=== PATIENT | male | born 1950 | race Caucasian/White ===

== ENCOUNTER 2016-11-23 10:13 | Inpatient (IN) | payer OTHER, MEDICARE, BC ==
[~2016-11-23] VITALS: Ht 162.6 cm; Wt 89.0 kg
[2016-11-23] VITALS (11 sets, daily range): BP systolic 132–193; BP diastolic 75–97; PULSE 70–91; RESP 16–18; TEMP 97.7–99.1; O2SAT 96–100
[2016-11-23] MEDS ORDERED: SODIUM CHLOR 0.9% 1000 ML INJ 1,000 ML IV SCH (10:20)
[2016-11-23] MEDS ORDERED: cholesterol med (10:27)
[2016-11-23] MEDS ORDERED: SODIUM CHLORIDE 0.9% FLUSH 10 ML FLUSH IVF PRN (10:30)
[2016-11-23] MEDS ORDERED: DIPHTH/TETANUS/ACEL PERTUSSIS (BOOSTER) 0.5 ML VIAL/PFS IM ONE (10:30)
[2016-11-23 10:40] LABS: AUTOMATED NEUTROPHIL # 6.9 TH/MM3 (1.8-7.7); BASOPHIL % 0.4 % (0.0-2.0); EOSINOPHIL # 0.1 TH/MM3 (0-0.4); EOSINOPHIL % 0.7 % (0.0-4.0); HEMATOCRIT 42.9 % (39.0-51.0); HEMO FLAGS DIFF FINAL; LYMPH % 22.2 % (9.0-44.0); LYMPHOCYTE # 2.2 TH/MM3 (1.0-4.8); MEAN CELL VOLUME 84.8 FL (80.0-100.0); MEAN CORPUSCULAR HEMOGLOBIN 29.5 PG (27.0-34.0); MEAN CORPUSCULAR HGB CONC 34.8 % (32.0-36.0); MONO % 7.1 % (0.0-8.0); NEUT % 69.6 % (16.0-70.0); PLATELET COUNT 187 TH/MM3 (150-450); RED BLOOD COUNT 5.06 MIL/MM3 (4.50-5.90); RED CELL DISTRIBUTION WIDTH 13.6 % (11.6-17.2)
[2016-11-23 10:44] LABS: I-STAT POTASSIUM 4.2 MMOL/L (3.5-4.9); I-STAT SODIUM 140 MMOL/L (138-146)
[2016-11-23 10:49] LABS: APTT (PATIENT) 23.9 SEC (24.3-30.1); INTERNATIONAL NORMALIZED RATIO 0.9 RATIO; PROTHROMBIN TIME - PATIENT 10.4 SEC (9.8-11.6)
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
[2016-11-23 10:51] LABS: ANION GAP 5 MEQ/L (5-15); BICARBONATE 28.1 MEQ/L (21.0-32.0); BLOOD UREA NITROGEN 14 MG/DL (7-18); CHLORIDE 107 MEQ/L (98-107); GLOMERULAR FILTRATION RATE 84 ML/MIN (>89); POTASSIUM 4.1 MEQ/L (3.5-5.1); SODIUM (NA) 140 MEQ/L (136-145)
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
[2016-11-23] MEDS ORDERED: IOHEXOL 350 MG/ML 10 ML VIAL (for RAD DIAG) IV ONE (11:35)
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
--- NOTE | 2016-11-23 15:50 | EKG ---
Date Performed: 11/23/2016 Time Performed: 10:22:44 PTAGE: 66 years EKG: Sinus rhythm MODERATE VOLTAGE CRITERIA FOR LVH, CONSIDER NORMAL VARIANT BORDERLINE ECG INTERPRETATION BASED ON A DEFAULT AGE OF 38 YEARS NO PREVIOUS TRACING DOCTOR: Elbert Sky Interpretating Date/Time 11/23/2016 15:47:39
[2016-11-23] MEDS ORDERED: MAGNESIUM HYDROXIDE SUSP 30 ML CUP PO PRN (16:30)
[2016-11-23] MEDS ORDERED: MORPHINE SULFATE 4 MG/ML INJ IV PRN (16:30)
[2016-11-23] MEDS ORDERED: ACETAMINOPHEN/HYDROcodone 325 MG/5 MG TAB PO PRN ×2 (16:30)
[2016-11-23] MEDS ORDERED: SODIUM CHLORIDE 0.9% FLUSH 10 ML FLUSH IV FLUSH PRN (16:30)
[2016-11-23] MEDS ORDERED: ONDANSETRON HCL 4 MG/2 ML VIAL IV PRN (16:30)
[2016-11-23] MEDS ORDERED: ENALAPRILAT 1.25 MG/ML VIAL IV PRN (16:30)
[2016-11-23] MEDS: SODIUM CHLOR 0.9% 1000 ML INJ 1,000 ML IV SCH (16:55)
[2016-11-23] MEDS ORDERED: PANTOPRAZOLE SODIUM 40 MG VIAL IVP SCH (17:00)
[2016-11-23 17:21] LABS: AMPHETAMINE, URINE NEG (NEG); BARBITURATES, URINE NEG (NEG); COCAINE, URINE NEG (NEG)
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
--- NOTE | 2016-11-23 19:49 | PD ---
Physical Exam Date Seen by Provider: Nov 23, 2016 Time Seen by Provider: 16:00 Narrative For full history and physical examination please see previous provider's note. I was asked to repair laceration to cheek and perform wound care. Data Data Last Documented VS Vital Signs Date Time Temp Pulse Resp B/P Pulse Ox O2 Delivery O2 Flow Rate FiO2 11/23/16 14:23 80 18 152/85 99 Room Air 11/23/16 13:03 2 11/23/16 10:20 98.6 Orders Electrocardiogram-Peds (11/23/16 ) I-Stat Profile (11/23/16 10:20) I-Stat Creatinine (11/23/16 10:20) Basic Metabolic Panel (Bmp) (11/23/16 10:20) Complete Blood Count With Diff (11/23/16 10:20) Prothrombin Time / Inr (Pt) (11/23/16 10:20) Act Partial Throm Time (Ptt) (11/23/16 10:20) Type And Screen (11/23/16 10:20) Fibrinogen (11/23/16 10:20) Alcohol (Ethanol) (11/23/16 10:20) Chest, Single Ap (11/23/16 10:20) Pelvis, Ap Only (Routine) (11/23/16 10:20) Ct Brain W/O Iv Contrast(Rout) (11/23/16 10:20) Ct Cerv Spine W/O Contrast (11/23/16 10:20) Ct Abd/Pel W Iv Contrast(Rout) (11/23/16 10:20) Ct Thorax/ Chest W Iv Contrast (11/23/16 10:20) Ct Thor Spine W/O Contrast (11/23/16 10:20) Ct Lumb Spine W/O Contrast (11/23/16 10:20) Ct Facial Bones W/O Iv Cont (11/23/16 10:20) Iv Access Insert/Monitor (11/23/16 10:20) Ecg Monitoring (11/23/16 10:20) Oximetry (11/23/16 10:20) Oxygen Administration (11/23/16 10:20) Gryx-Gpy-Zpgbrx (Booster) Inj (Boostrix (11/23/16 10:30) Sodium Chlor 0.9% 1000 Ml Inj (Ns 1000 M (11/23/16 10:20) Sodium Chloride 0.9% Flush (Ns Flush) (11/23/16 10:30) Drug Screen, Random Urine (11/23/16 10:20) Ed Poc Ultrasound (11/23/16 ) Iohexol 350 Inj (Omnipaque 350 Inj) (11/23/16 11:35) Admit Order (Ed Use Only) (11/23/16 ) Labs Laboratory Tests Test 11/23/16 11/23/16 10:24 13:00 White Blood Count 10.0 TH/MM3 Red Blood Count 5.06 MIL/MM3 Hemoglobin 14.9 GM/DL Bedside Hemoglobin 15.0 G/DL Hematocrit 42.9 % Bedside Hematocrit 44.0 % Mean Corpuscular Volume 84.8 FL Mean Corpuscular Hemoglobin 29.5 PG Mean Corpuscular Hemoglobin 34.8 % Concent Red Cell Distribution Width 13.6 % Platelet Count 187 TH/MM3 Mean Platelet Volume 9.3 FL Neutrophils (%) (Auto) 69.6 % Lymphocytes (%) (Auto) 22.2 % Monocytes (%) (Auto) 7.1 % Eosinophils (%) (Auto) 0.7 % Basophils (%) (Auto) 0.4 % Neutrophils # (Auto) 6.9 TH/MM3 Lymphocytes # (Auto) 2.2 TH/MM3 Monocytes # (Auto) 0.7 TH/MM3 Eosinophils # (Auto) 0.1 TH/MM3 Basophils # (Auto) 0.0 TH/MM3 CBC Comment DIFF FINAL Differential Comment Prothrombin Time 10.4 SEC Prothromb Time International 0.9 RATIO Ratio Activated Partial 23.9 SEC Thromboplast Time Fibrinogen 266 mg/dL Bedside Sodium 140 MMOL/L Sodium Level 140 MEQ/L Bedside Potassium 4.2 MMOL/L Potassium Level 4.1 MEQ/L Bedside Chloride 103 MMOL/L Chloride Level 107 MEQ/L Carbon Dioxide Level 28.1 MEQ/L Anion Gap 5 MEQ/L Bedside Blood Urea Nitrogen 15 MG/DL Blood Urea Nitrogen 14 MG/DL Creatinine 0.90 MG/DL Bedside Creatinine 0.9 MG/DL Estimat Glomerular Filtration 84 ML/MIN Rate Bedside Glucose 122 MG/DL Random Glucose 121 MG/DL Calcium Level 9.1 MG/DL Ethyl Alcohol Level LESS THAN 3 MG/DL Blood Type A NEGATIVE Antibody Screen NEGATIVE Urine Opiates Screen NEG Urine Barbiturates Screen NEG Urine Amphetamines Screen NEG Urine Benzodiazepines Screen NEG Urine Cocaine Screen NEG Urine Cannabinoids Screen NEG MDM Medical Record Reviewed: Yes Supervised Visit with RA: Yes Procedures Procedure Narrative LACERATION LOCATION: Left cheek LENGTH: 1 cm NUMBER OF STITCHES/SLADE: 3 stitches REPAIR: The area of the laceration was prepped with Betadine and sterilely draped. The laceration was infiltrated with 1% lidocaine with epi The wound was copiously irrigated and explored without evidence of foreign body, tendon injury or neurovascular injury. The wound was closed using 4-0 Prolene. This was a 1 layer repair. A sterile dressing was applied. The patient was advised to keep the dressing clean and dry. Patient tolerated the procedure well. Skin avulsion to right inner wrist was thoroughly cleaned with normal saline and Betadine. Skin was then approximated and Steri-Strips were applied. Wound was dressed with sterile dressing. Abrasion to anterior scalp was thoroughly cleaned with peroxide to remove dried crusted blood and then cleaned with normal saline and Betadine. Non adherent dressing applied. Diagnosis Primary Impression: Intra-abdominal hematoma Qualified Code: S36.92XA - Intra-abdominal hematoma, initial encounter Additional Impressions: Closed head injury Facial laceration Laceration of right wrist Condition: Stable Sarah Mathew [facility] Nov 23, 2016 19:48
[2016-11-23] MEDS: BACITRACIN TOP OINT 15 GM TUBE TOP SCH (21:00)
[2016-11-23] MEDS: DOCUSATE SODIUM 100 MG CAP PO SCH (21:00)
[2016-11-24] MEDS: SODIUM CHLOR 0.9% 1000 ML INJ 1,000 ML IV SCH ×2 (03:00→13:00)
[2016-11-24 04:54] VITALS: BP 139/73; PULSE 67; RESP 18; TEMP 98.4; O2SAT 97
[2016-11-24 05:50] LABS: BICARBONATE 25.1 MEQ/L (21.0-32.0); POTASSIUM 3.6 MEQ/L (3.5-5.1)
[2016-11-24 05:55] LABS: AUTOMATED NEUTROPHIL # 5.3 TH/MM3 (1.8-7.7); BASOPHIL % 0.3 % (0.0-2.0); EOSINOPHIL % 0.2 % (0.0-4.0); HEMATOCRIT 39.5 % (39.0-51.0); HEMO FLAGS DIFF FINAL; LYMPH % 27.5 % (9.0-44.0); LYMPHOCYTE # 2.4 TH/MM3 (1.0-4.8); MEAN CELL VOLUME 85.3 FL (80.0-100.0); MEAN CORPUSCULAR HEMOGLOBIN 29.5 PG (27.0-34.0); MEAN CORPUSCULAR HGB CONC 34.6 % (32.0-36.0); MONO % 10.7 % (0.0-8.0); NEUT % 61.3 % (16.0-70.0); PLATELET COUNT 180 TH/MM3 (150-450); RED BLOOD COUNT 4.63 MIL/MM3 (4.50-5.90); RED CELL DISTRIBUTION WIDTH 13.8 % (11.6-17.2); WHITE BLOOD COUNT 8.7 TH/MM3 (4.0-11.0)
[2016-11-24 08:00] VITALS: BP 148/80; PULSE 75; RESP 18; TEMP 96.3; O2SAT 97
[2016-11-24] MEDS: DOCUSATE SODIUM 100 MG CAP PO SCH (08:14)
[2016-11-24] MEDS: BACITRACIN TOP OINT 15 GM TUBE TOP SCH (08:22)
[2016-11-24] MEDS ORDERED: MILKSUS PO (11:37)
[2016-11-24] MEDS ORDERED: DOCU1CAP39 PO (11:37)
[2016-11-24 12:00] VITALS: BP 113/78; PULSE 65; RESP 18; TEMP 97.5; O2SAT 98
[2016-11-24] MEDS ORDERED: NORC5TAB PO (12:10)
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
[2016-11-24 13:55] VITALS: O2SAT 97
[2016-11-24] MEDS ORDERED: PANTOPRAZOLE SOD 40 MG DELAYED RELEASE TAB PO SCH (17:00)
== END 2016-11-24 16:47 | disposition home or self-care (01) | DRG 914 ==
LOC: NEPA 10:13 → NEDA 14:52 → NEDH 17:51 → N06B 20:46
PROVIDERS: ADMIT Surgery; ATTEND Surgery
PROC: 0HQ1XZZ Repair Face Skin, External Approach (ICD-10-PCS; principal; 2016-11-23)
DX: S36.892A Contusion of other intra-abdominal organs, initial encounter (principal); S09.90XA Unspecified injury of head, initial encounter; S01.81XA Laceration without foreign body of other part of head, initial encounter; S61.501A Unspecified open wound of right wrist, initial encounter; S00.81XA Abrasion of other part of head, initial encounter; V49.40XA Driver injured in collision with unspecified motor vehicles in traffic accident, initial encounter; Y92.411 Interstate highway as the place of occurrence of the external cause; E78.00 Pure hypercholesterolemia, unspecified
CPT/HCPCS: 12011; 70450; 70486; 71010; 71260; 72125; 72128; 72131; 72170; 74177; 80048; 80307; 82435; 82565; 82947; 84132; 84295; 84520; 85025; 85384; 85610; 85730; 86850; 86900; 86901; 90471; 90715; 93005; 94150; 96360; C9113; J7030; Q9967